=== PATIENT | male | born 1995 | race Caucasian/White ===

== ENCOUNTER 2016-08-16 19:07 | Emergency (ER) | payer SELFPAY ==
[2016-08-16] MEDS ORDERED: SUDAFED 12-HOU120 MG PO (19:20)
[2016-08-16] MEDS ORDERED: MUCINEX600 MG PO (19:21)
[2016-08-16] MEDS ORDERED: IBUPROFEN200 MG PO (19:22)
[2016-08-16] MEDS ORDERED: DOXYCYCLINE HY100 MG PO (20:06)
[2016-08-16] MEDS ORDERED: GUAIFENESIN-CO118 ML PO (20:06)
== END 2016-08-16 20:28 | disposition home or self-care (01) ==
LOC: ED 19:07
DX: J20.9 Acute bronchitis, unspecified (principal); H66.93 Otitis media, unspecified, bilateral; Z79.899 Other long term (current) drug therapy; Z98.890 Other specified postprocedural states
CPT/HCPCS: 71020; 99283

== ENCOUNTER 2022-01-14 10:56 | Emergency (ER) | payer OTHER ==
[~2022-01-14] VITALS: Ht 170.2 cm; Wt 83.5 kg
[~2022-01-14 10:56] MED LIST: DOXYCYCLINE HY100 MG PO; GUAIFENESIN-CO118 ML PO; IBUPROFEN200 MG PO; MUCINEX600 MG PO; SUDAFED 12-HOU120 MG PO
--- OUTSIDE RECORDS SUMMARY | 2022-01-14 11:04 | XMS ---
PreManage Notification: AIME RAE Security Director Financial Analysis Events No recent Security Events currently on file CRITERIA MET - Group Notification CARE PROVIDERS OTILIA BOLAÑOS Physician Hourly Caregiver Current PHONE: [phone] Re has no Care Guidelines for this patient. Noe VISIT COUNT (12 MO.) 1 DARON Cortes TOTAL 1 NOTE: Visits indicate total known visits. ED/UCC VISIT TRACKING (12 MO.) 01/14/2022 10:57 DARON Jules OR TYPE: Emergency COMPLAINT: - COLD SYMPTOMS, FEVER, COUGH INPATIENT VISIT TRACKING (12 MO.) No inpatient visits to display in this time frame [email or web address]
== END 2022-01-14 14:07 | disposition home or self-care (01) ==
LOC: ED 10:56
DX: J10.1 Influenza due to other identified influenza virus with other respiratory manifestations (principal); Z20.822 Contact with and (suspected) exposure to COVID-19
CPT/HCPCS: 87502; 99283; A9270; C9803; U0003